=== PATIENT | female | born 1940 | race Caucasian/White ===

== ENCOUNTER 2022-05-23 10:46 | Inpatient (IN) ==
[2022-05-23] MEDS ORDERED: Iopamidol - 370 500 ML MLS IVP ONE (13:46)
[2022-05-23 14:22] LABS: Basophils % 0.3 %; Eosinophils % 0.2 %; Hematocrit 40.5 % (35.3-44.9); Immature Granulocytes % 0.3 % (0-4); Lymphocytes % 14.7 %; Mean Corpuscular HGB Conc 32.1 g/dL (31.6-35.5); Mean Corpuscular Hemoglobin 31.5 pg (28.0-33.3); Mean Corpuscular Volume 98.1 fL (83.0-100.0); Mean Platelet Volume 11.3 fL (9.4-12.4); Monocytes # 1.2 K/mcL (0.0-1.3); Monocytes % 8.9 %; Neutrophils # 10.5 K/mcL (1.6-8.9); Platelet Count 206 K/mcL (140-400); Red Blood Count 4.13 M/mcL (3.82-4.97); Red Cell Distribution Width 13.6 % (11.5-14.5); Segmented Neutrophils % 75.6 %; White Blood Count 13.8 K/mcL (4.3-11.1)
[2022-05-23 14:39] LABS: Albumin 4.4 g/dL (3.5-5.7); Albumin/Globulin Ratio 1.5 (1.1-2.2); Bilirubin,Total 0.5 mg/dL (0.3-1.0); Calcium 9.2 mg/dL (8.6-10.3); Potassium 4.9 mEq/L (3.5-5.1); Total Protein 7.4 g/dL (6.4-8.9)
[2022-05-23] MEDS ORDERED: 0.9 % Sodium Chloride 1,000 ML IVC ONE (16:45)
[2022-05-23 18:33] LABS: Bacteria,Urine Few per hpf (None-Few); Bilirubin,Urine Negative (Negative); Blood,Urine Small (Negative); Clarity,Urine Turbid (Clear); Color,Urine Yellow (Yellow); Glucose,Urine (UA) Normal (Normal); Hyaline Casts,Urine Moderate per lpf (None Seen); Ketones,Urine Negative (Negative); Leukocyte Esterase,Urine Large (Negative); Mucus,Urine Few per lpf (None-Few); Nitrite,Urine Negative (Negative); PH,Urine 5.5 pH Units (5.0-8.0); Protein,Urine Trace mg/dL (Neg-Trace); Squamous Epithelial Cell,Urine Moderate per hpf (None-Few); Transitional Epi Cells,Urine Few per hpf (None-Few); Urobilinogen,Urine Normal (Normal); WBC,Urine 15-30 per hpf (0-3)
[2022-05-23] MEDS ORDERED: cefTRIAXone 1,000 MG in 0.9 % Sodium Chloride 10 ML IVP ONE (18:44)
[2022-05-23] MEDS ORDERED: MetroNIDAZOLE 500 MG/100 ML 500 MG/100 ML BAG IVPB ONE (19:04)
[2022-05-23] MEDS ORDERED: *HR* HYDROcodone/Acet 5/325 mg TABLET PO PRN (19:11)
[2022-05-23] MEDS ORDERED: Naloxone 0.4 MG/ML INJ IVP PRN (19:11)
[2022-05-23] MEDS ORDERED: D5% in Water 1,000 ML IVC PRN (19:38)
[2022-05-23] MEDS ORDERED: *HR* Dextrose 50 % in Water (Syg) 50 ML SYRINGE IVP PRN (19:38)
[2022-05-23] MEDS ORDERED: Dextrose Gel 15 GM/37.5 ML TUBE PO PRN ×2 (19:38)
[2022-05-23] MEDS: Lactobacillus 1 EACH CAP.SPRINK PO SCH (21:33)
[2022-05-23] MEDS: Acetaminophen 325 MG TABLET PO PRN (21:33)
[2022-05-23] MEDS: Ondansetron 4 MG/2 ML VIAL IVP PRN (22:35)
[2022-05-23] MEDS: Ringers Solution, Lactated 1,000 ML IVC SCH (22:38)
[2022-05-24] MEDS: MetroNIDAZOLE 500 MG/100 ML 500 MG/100 ML BAG IVPB SCH ×3 (02:15→19:34)
[2022-05-24 02:52] LABS: Protein/Creatinine Ratio,Urine 0.13 mg/mg (0.00-0.20); Sodium, Urine 82.2 mEq/L
[2022-05-24 03:23] LABS: Basophils % 0.2 %; Eosinophils # 0.1 K/mcL (0.0-0.6); Eosinophils % 0.6 %; Hematocrit 34.3 % (35.3-44.9); Immature Granulocytes % 0.4 % (0-4); Lymphocytes # 1.9 K/mcL (0.6-4.6); Lymphocytes % 16.6 %; Mean Corpuscular HGB Conc 31.5 g/dL (31.6-35.5); Mean Corpuscular Hemoglobin 31.2 pg (28.0-33.3); Mean Corpuscular Volume 99.1 fL (83.0-100.0); Mean Platelet Volume 11.6 fL (9.4-12.4); Monocytes # 0.9 K/mcL (0.0-1.3); Monocytes % 8.1 %; Neutrophils # 8.3 K/mcL (1.6-8.9); Platelet Count 165 K/mcL (140-400); Red Blood Count 3.46 M/mcL (3.82-4.97); Red Cell Distribution Width 13.7 % (11.5-14.5); Segmented Neutrophils % 74.1 %; White Blood Count 11.2 K/mcL (4.3-11.1)
[2022-05-24 03:38] LABS: INR 1.1; Prothrombin Time 12.3 Seconds (9.4-12.1)
[2022-05-24 03:39] LABS: Albumin 3.5 g/dL (3.5-5.7); Albumin/Globulin Ratio 1.6 (1.1-2.2); Bilirubin,Total 0.3 mg/dL (0.3-1.0); Calcium 8.1 mg/dL (8.6-10.3); Globulin 2.2 g/dL (2.4-3.5); Magnesium 1.2 mg/dL (1.6-2.6); Phosphorous 2.7 mg/dL (2.7-4.5); Potassium 4.7 mEq/L (3.5-5.1); Total Protein 5.7 g/dL (6.4-8.9)
[2022-05-24 03:40] LABS: Activated Partial Thrombo Time 27.3 Seconds (26.0-36.0)
[2022-05-24 03:41] LABS: Hemoglobin 10.8 g/dL (11.5-15.4)
[2022-05-24] MEDS ORDERED: *HR* Heparin 5,000 UNIT/ML VIAL SQ SCH (06:00)
[2022-05-24] MEDS: Acetaminophen 325 MG TABLET PO PRN ×3 (06:12→20:14)
[2022-05-24] MEDS: Ondansetron 4 MG/2 ML VIAL IVP PRN (06:14)
[2022-05-24] MEDS: Lactobacillus 1 EACH CAP.SPRINK PO SCH ×2 (09:23→19:34)
[2022-05-24] MEDS: Ringers Solution, Lactated 1,000 ML IVC SCH (12:30)
[2022-05-24] MEDS ORDERED: lisinopriL 10 MG TABLET PO SCH (13:45)
[2022-05-24] MEDS ORDERED: NON-FORMULARY MEDICATION 1 EACH EACH (Enalapril/Hydrochlorothiazide [Enalapril-Hctz 5-12.5 PO SCH (13:45)
[2022-05-24] MEDS: hydroCHLOROthiazide 25 MG TABLET PO SCH (13:51)
[2022-05-24] MEDS: Ondansetron 4 MG/2 ML VIAL IVP SCH ×3 (13:51→23:11)
[2022-05-24] MEDS ORDERED: Ondansetron 4 MG/2 ML VIAL IVP SCH ×2 (16:00→18:00)
[2022-05-24] MEDS: cefTRIAXone 1,000 MG in 0.9 % Sodium Chloride 10 ML IVP SCH (17:46)
[2022-05-25] MEDS: Acetaminophen 325 MG TABLET PO PRN ×2 (02:20→11:52)
[2022-05-25] MEDS: MetroNIDAZOLE 500 MG/100 ML 500 MG/100 ML BAG IVPB SCH ×3 (02:21→18:09)
[2022-05-25 02:50] LABS: Basophils % 0.2 %; Eosinophils # 0.2 K/mcL (0.0-0.6); Eosinophils % 1.7 %; Hematocrit 35.1 % (35.3-44.9); Hemoglobin 11.1 g/dL (11.5-15.4); Immature Granulocytes % 0.1 % (0-4); Lymphocytes % 20.5 %; Mean Corpuscular HGB Conc 31.6 g/dL (31.6-35.5); Mean Corpuscular Hemoglobin 30.7 pg (28.0-33.3); Mean Platelet Volume 11.5 fL (9.4-12.4); Monocytes # 0.9 K/mcL (0.0-1.3); Monocytes % 9.2 %; Neutrophils # 6.7 K/mcL (1.6-8.9); Platelet Count 178 K/mcL (140-400); Red Blood Count 3.62 M/mcL (3.82-4.97); Red Cell Distribution Width 13.3 % (11.5-14.5); Segmented Neutrophils % 68.3 %; White Blood Count 9.9 K/mcL (4.3-11.1)
[2022-05-25 03:03] LABS: Calcium 8.6 mg/dL (8.6-10.3); Potassium 4.7 mEq/L (3.5-5.1)
[2022-05-25] MEDS: Ondansetron 4 MG/2 ML VIAL IVP SCH ×4 (04:56→21:31)
[2022-05-25] MEDS: Lactobacillus 1 EACH CAP.SPRINK PO SCH ×2 (08:17→21:32)
[2022-05-25] MEDS: hydroCHLOROthiazide 25 MG TABLET PO SCH (08:17)
[2022-05-25] MEDS: cefTRIAXone 1,000 MG in 0.9 % Sodium Chloride 10 ML IVP SCH (18:10)
[2022-05-25] MEDS: Melatonin 3 MG TABLET PO PRN (21:32)
[2022-05-26] MEDS: MetroNIDAZOLE 500 MG/100 ML 500 MG/100 ML BAG IVPB SCH ×2 (03:07→10:35)
[2022-05-26] MEDS: Ondansetron 4 MG/2 ML VIAL IVP SCH ×4 (05:26→22:23)
[2022-05-26 07:22] LABS: Basophils % 0.4 %; Eosinophils # 0.2 K/mcL (0.0-0.6); Eosinophils % 2.9 %; Hematocrit 33.5 % (35.3-44.9); Immature Granulocytes % 0.4 % (0-4); Lymphocytes # 1.7 K/mcL (0.6-4.6); Lymphocytes % 22.5 %; Mean Corpuscular HGB Conc 32.8 g/dL (31.6-35.5); Mean Corpuscular Volume 97.4 fL (83.0-100.0); Mean Platelet Volume 11.1 fL (9.4-12.4); Monocytes # 0.8 K/mcL (0.0-1.3); Monocytes % 10.2 %; Neutrophils # 4.8 K/mcL (1.6-8.9); Platelet Count 185 K/mcL (140-400); Red Blood Count 3.44 M/mcL (3.82-4.97); Red Cell Distribution Width 13.3 % (11.5-14.5); Segmented Neutrophils % 63.6 %; White Blood Count 7.5 K/mcL (4.3-11.1)
[2022-05-26 07:38] LABS: Calcium 8.6 mg/dL (8.6-10.3); Potassium 5.4 mEq/L (3.5-5.1)
[2022-05-26] MEDS ORDERED: ESTRADIOL 0.01% VG SCH (09:00)
[2022-05-26] MEDS: Lactobacillus 1 EACH CAP.SPRINK PO SCH ×2 (09:04→22:24)
[2022-05-26] MEDS: hydroCHLOROthiazide 25 MG TABLET PO SCH (09:05)
[2022-05-26] MEDS ORDERED: Acetaminophen IV 1,000 MG/100 ML BAG IVPB ONE (09:39)
[2022-05-26 09:46] LABS: Magnesium 2.1 mg/dL (1.6-2.6)
[2022-05-26] MEDS ORDERED: Ondansetron 4 MG/2 ML VIAL IVP ONE (09:49)
[2022-05-26 11:51] LABS: Adenovirus Not Detected (Not Detect); Bordetella Pertussis Not Detected (Not Detect); Chlamydophila pneumoniae Not Detected (Not Detect); Coronavirus 229E Not Detected (Not Detect); Coronavirus HKU1 Not Detected (Not Detect); Coronavirus NL63 Not Detected (Not Detect); Coronavirus OC43 Not Detected (Not Detect); Human Metapneumovirus Not Detected (Not Detect); Human Rhinovirus/Enterovirus Not Detected (Not Detect); Influenza A Subtype 2009 H1 Not Detected (Not Detect); Influenza B Not Detected (Not Detect); Mycoplasma pneumoniae Not Detected (Not Detect); Parainfluenza Virus 1 Not Detected (Not Detect); Parainfluenza Virus 2 Not Detected (Not Detect); Parainfluenza Virus 3 Not Detected (Not Detect); Parainfluenza Virus 4 Not Detected (Not Detect); Respiratory Syncytial Virus Not Detected (Not Detect); SARS-CoV-2 Not Detected (Not Detect)
[2022-05-26] MEDS: Acetaminophen 325 MG TABLET PO PRN ×2 (15:08→22:23)
[2022-05-26] MEDS ORDERED: Calcium Gluconate 1gm/50mL 1 GM/50 ML BAG IVPB ONE (15:29)
[2022-05-26] MEDS: Melatonin 3 MG TABLET PO PRN (22:24)
[2022-05-26] MEDS: metroNIDAZOLE 500 MG TABLET PO SCH (22:24)
[2022-05-27] MEDS: Acetaminophen 325 MG TABLET PO PRN ×2 (05:01→20:38)
[2022-05-27] MEDS: Ondansetron 4 MG/2 ML VIAL IVP SCH ×4 (05:01→23:38)
[2022-05-27 05:27] LABS: Basophils % 0.4 %; Eosinophils # 0.2 K/mcL (0.0-0.6); Eosinophils % 2.9 %; Hematocrit 35.2 % (35.3-44.9); Hemoglobin 11.5 g/dL (11.5-15.4); Immature Granulocytes % 0.3 % (0-4); Lymphocytes # 1.3 K/mcL (0.6-4.6); Lymphocytes % 17.3 %; Mean Corpuscular HGB Conc 32.7 g/dL (31.6-35.5); Mean Corpuscular Hemoglobin 31.5 pg (28.0-33.3); Mean Corpuscular Volume 96.4 fL (83.0-100.0); Mean Platelet Volume 10.9 fL (9.4-12.4); Monocytes # 0.7 K/mcL (0.0-1.3); Neutrophils # 5.4 K/mcL (1.6-8.9); Platelet Count 208 K/mcL (140-400); Red Blood Count 3.65 M/mcL (3.82-4.97); Red Cell Distribution Width 13.1 % (11.5-14.5); Segmented Neutrophils % 70.1 %; White Blood Count 7.6 K/mcL (4.3-11.1)
[2022-05-27 05:46] LABS: Calcium 9.2 mg/dL (8.6-10.3); Magnesium 1.4 mg/dL (1.6-2.6); Phosphorous 2.6 mg/dL (2.7-4.5); Potassium 5.6 mEq/L (3.5-5.1)
[2022-05-27] MEDS ORDERED: Calcium Gluconate 1gm/50mL 1 GM/50 ML BAG IVPB ONE (08:21)
[2022-05-27] MEDS: Lactobacillus 1 EACH CAP.SPRINK PO SCH ×2 (08:22→20:28)
[2022-05-27] MEDS: metroNIDAZOLE 500 MG TABLET PO SCH (08:23)
[2022-05-27] MEDS: hydroCHLOROthiazide 25 MG TABLET PO SCH (08:23)
[2022-05-27] MEDS ORDERED: Famotidine 20 MG/2 ML VIAL IVP ONE (10:16)
[2022-05-27] MEDS: MetroNIDAZOLE 500 MG/100 ML 500 MG/100 ML BAG IVPB SCH ×2 (17:22→23:38)
[2022-05-28 02:49] LABS: Basophils # 0.1 K/mcL (0.0-0.2); Basophils % 0.7 %; Eosinophils # 0.2 K/mcL (0.0-0.6); Eosinophils % 2.5 %; Hematocrit 34.7 % (35.3-44.9); Hemoglobin 11.3 g/dL (11.5-15.4); Immature Granulocytes % 0.4 % (0-4); Lymphocytes # 2.2 K/mcL (0.6-4.6); Lymphocytes % 24.2 %; Mean Corpuscular HGB Conc 32.6 g/dL (31.6-35.5); Mean Corpuscular Hemoglobin 31.2 pg (28.0-33.3); Mean Corpuscular Volume 95.9 fL (83.0-100.0); Mean Platelet Volume 10.7 fL (9.4-12.4); Neutrophils # 5.6 K/mcL (1.6-8.9); Platelet Count 214 K/mcL (140-400); Red Blood Count 3.62 M/mcL (3.82-4.97); Segmented Neutrophils % 61.2 %; White Blood Count 9.2 K/mcL (4.3-11.1)
[2022-05-28 03:03] LABS: Calcium 8.9 mg/dL (8.6-10.3); Potassium 4.6 mEq/L (3.5-5.1)
[2022-05-28] MEDS: Acetaminophen 325 MG TABLET PO PRN (04:24)
[2022-05-28] MEDS: Ondansetron 4 MG/2 ML VIAL IVP SCH (05:42)
[2022-05-28 07:52] VITALS: TEMP 97.4
[2022-05-28] MEDS: Lactobacillus 1 EACH CAP.SPRINK PO SCH (08:50)
[2022-05-28] MEDS: hydroCHLOROthiazide 25 MG TABLET PO SCH (08:50)
[2022-05-28] MEDS: MetroNIDAZOLE 500 MG/100 ML 500 MG/100 ML BAG IVPB SCH (08:51)
[2022-05-28] MEDS ORDERED: amLODIPine 5 MG TABLET PO SCH (09:00)
[2022-05-28 11:51] VITALS: BP 157/92; PULSE 82; O2SAT 95
== END 2022-05-28 14:47 | disposition home or self-care (01) | DRG 683 ==
LOC: EMEROOARM 10:46 → 2ANU 10:46 → SUATTDRO 19:17 → 2ANU 20:51
PROVIDERS: ADMIT Internal Medicine; ATTEND Pharmacist